=== PATIENT | female | born 1935 | race Caucasian/White ===

== ENCOUNTER 2017-11-05 00:58 | Emergency (ER) | payer MEDICARE, BC ==
[2017-11-05] MEDS ORDERED: Metoprolol Succinate 50 MG Tab.ER PO ONE (02:04)
--- NOTE | 2017-11-05 02:07 | EDM.PDOC ---
ED HPI GENERAL MEDICAL PROBLEM - General Chief Complaint: Cardiovascular Problem Stated Complaint: A-FIB Time Seen by Provider: 11/05/17 01:56 Source of Information: Reports: Patient History Limitations: Reports: No Limitations - History of Present Illness INITIAL COMMENTS - FREE TEXT/NARRATIVE: Brought by her Chief complaint Palpitations History of present illness 82-year-old female who has been having increased palpitations over the last month. In particular tonight was keeping her awake. It happens very frequently. She feels that she may have contact with atrial fibrillation No shortness of breath no chest pain Her blood pressure monitored home a heart rate was 100. - Related Data Allergies Allergy/AdvReac Type Severity Reaction Status Date / Time clindamycin Allergy Cannot Verified 10/04/16 07:13 Remember Iodinated Contrast- Oral and Allergy Cannot Verified 10/04/16 07:13 IV Dye Remember [Iodinated Contrast Media - IV Dye] prednisone Allergy Cannot Verified 10/04/16 07:13 Remember Home Meds: Home Meds Metoprolol Succinate 100 mg PO BID 02/12/15 [History] Aspirin 81 mg PO DAILY 06/04/16 [History] Tretinoin [Retin-A 0.025% Cream] 1 applic TOP BEDTIME 06/11/16 [History] Ezetimibe [Zetia] 5 mg PO DAILY 06/12/16 [History] Cholecalciferol (Vitamin D3) [Vitamin D3] 2,000 unit PO DAILY 10/03/16 [History] Cyanocobalamin (Vitamin B-12) [Vitamin B-12] 1,000 mcg SL DAILY 10/03/16 [ History] Pravastatin [Pravachol] 5 mg PO DAILY 10/03/16 [History] Lisinopril [Lisinopril] 10 mg PO DAILY 10/04/16 [History] Past Medical History HEENT History: Reports: Impaired Vision Cardiovascular History: Reports: High Cholesterol, Hypertension Gastrointestinal History: Reports: GERD Genitourinary History: Reports: Other (See Below) Other Genitourinary History: kidney removed granulo disease [employer] History: Reports: Musculoskeletal History: Reports: Fracture Neurological History: Reports: Migraines Psychiatric History: Reports: Anxiety Endocrine/Metabolic History: Reports: Other (See Below) Other Endocrine/Metabolic History: thyroid nodule Hematologic History: Reports: Anemia - Infectious Disease History Infectious Disease History: Reports: Chicken Pox, Measles, Mumps, Rheumatic Fever - Past Surgical History HEENT Surgical History: Reports: Other (See Below) Cardiovascular Surgical History: Reports: Other (See Below) GI Surgical History: Reports: Colonoscopy, EGD Female Surgical History: Reports: Breast Biopsy, Hysterectomy Neurological Surgical History: Reports: None Musculoskeletal Surgical History: Reports: Ganglion Cyst, Other (See Below) Social & Family History - Tobacco Use Smoking Status *Q: Never Smoker Second Hand Smoke Exposure: No - Caffeine Use Caffeine Use: Reports: Coffee - Alcohol Use Days Per Week of Alcohol Use: 7 Number of Drinks Per Day: 1 Total Drinks Per Week: 7 - Recreational Drug Use Recreational Drug Use: No ED ROS GENERAL - Review of Systems Review Of Systems: ROS reveals no pertinent complaints other than HPI. Cardiovascular: Reports: Palpitations. Denies: Chest Pain, Lightheadedness, Syncope ED EXAM, GENERAL - Physical Exam Exam: See Below Exam Limited By: No Limitations General Appearance: Alert, Anxious, Mild Distress, Other (Mild elevation blood pressure otherwise vital signs normal, heart rhythm normal with occasional extra beats) Eye Exam: Bilateral Eye: Normal Inspection Neck: Normal Inspection, Supple, Non-Tender Respiratory/Chest: No Respiratory Distress, No Accessory Muscle Use Cardiovascular: Normal Peripheral Pulses, Extra Beats Neurological: Alert, Oriented, No Motor/Sensory Deficits Psychiatric: Anxious Skin Exam: Warm, Dry, Intact, Normal Color Course - Vital Signs Last Recorded V/S: Last Vital Signs Temp 35.9 C 11/05/17 01:41 Pulse 70 11/05/17 02:10 Resp 13 11/05/17 02:09 BP 147/70 H 11/05/17 02:10 Pulse Ox 97 11/05/17 02:09 - Orders/Labs/Meds Meds: Medications Discontinued Medications Generic Name Dose Route Start Last Admin Trade Name Freq PRN Reason Stop Dose Admin Metoprolol Succinate 50 mg 11/05/17 02:04 11/05/17 02:10 Toprol Xl PO 11/05/17 02:05 50 mg ONETIME ONE Administration - Re-Assessments/Exams Free Text/Narrative Re-Assessment/Exam: 11/05/17 02:05 82-year-old female with history of atrial fibrillationpresents with palpitations. On the monitor she is having frequent PACs. Underlying sinus rhythm rate 72. Metoprolol 50 mg by mouth given because the palpitations are interfering with her ability to sleep This has been occurring in the last month, So follow-up with her physician is recommended to discuss further treatment of the frequent PACs, possible Holter monitor. Departure - Departure Time of Disposition: 02:10 Disposition: Home, Self-Care 01 Condition: Good Clinical Impression: Premature atrial contractions Instructions: Premature Atrial Contraction Referrals: Gurmeet Fernandez Sr, MD [Primary Care Provider] - Forms: ED Department Discharge Additional Instructions: Please make an appointment to discuss treatment of the premature atrial contractions. These are normal but early beats.
[2017-11-05 02:10] VITALS: BP 147/70
== END 2017-11-05 02:19 | disposition home or self-care (01) ==
LOC: JP.ED 00:58
DX: I49.1 Atrial premature depolarization (principal); I10 Essential (primary) hypertension; E78.00 Pure hypercholesterolemia, unspecified; K21.9 Gastro-esophageal reflux disease without esophagitis; Z79.82 Long term (current) use of aspirin; Z79.899 Other long term (current) drug therapy; Z88.1 Allergy status to other antibiotic agents; Z88.8 Allergy status to other drugs, medicaments and biological substances; Z91.041 Radiographic dye allergy status
CPT/HCPCS: 99285; A9270; 99284

== ENCOUNTER 2018-01-16 16:58 | Emergency (ER) | payer MEDICARE, BC ==
[2018-01-16 17:58] VITALS: BP 121/51
--- NOTE | 2018-01-16 18:01 | EDM.PDOC ---
ED HPI GENERAL MEDICAL PROBLEM - General Chief Complaint: General Stated Complaint: COUGH/FEVER/CHILLS Time Seen by Provider: 01/16/18 17:50 Source of Information: Reports: Patient, Family History Limitations: Reports: No Limitations - History of Present Illness INITIAL COMMENTS - FREE TEXT/NARRATIVE: Amaya presents today with complaints of sore throat, fever, ear pain, chills, nausea, cough and muscle aches for 5 days. She denies difficulty or SOB, chest pain, palpitations or change in bowel/bladder habits. She has not tried OTC medication to help her symptoms. - Related Data Allergies Allergy/AdvReac Type Severity Reaction Status Date / Time clindamycin Allergy Cannot Verified 01/16/18 17:25 Remember Iodinated Contrast- Oral and Allergy Cannot Verified 01/16/18 17:25 IV Dye Remember [Iodinated Contrast Media - IV Dye] prednisone Allergy Cannot Verified 01/16/18 17:25 Remember Home Meds: Home Meds Metoprolol Succinate 100 mg PO BID 02/12/15 [History] Tretinoin [Retin-A 0.025% Cream] 1 applic TOP BEDTIME 06/11/16 [History] Ezetimibe [Zetia] 5 mg PO DAILY 06/12/16 [History] Cholecalciferol (Vitamin D3) [Vitamin D3] 2,000 unit PO DAILY 10/03/16 [History] Pravastatin [Pravachol] 5 mg PO DAILY 10/03/16 [History] Apixaban [Eliquis] 01/16/18 [History] Flecainide [Tambocor] 01/16/18 [History] Ofloxacin [Ofloxacin] 01/16/18 [History] prednisoLONE Acetate [Pred Forte 1% Ophth Susp] 01/16/18 [History] Past Medical History HEENT History: Reports: Impaired Vision Cardiovascular History: Reports: High Cholesterol, Hypertension Gastrointestinal History: Reports: GERD Genitourinary History: Reports: Other (See Below) Other Genitourinary History: kidney removed granulo disease [employer] History: Reports: Musculoskeletal History: Reports: Fracture Neurological History: Reports: Migraines Psychiatric History: Reports: Anxiety Endocrine/Metabolic History: Reports: Other (See Below) Other Endocrine/Metabolic History: thyroid nodule Hematologic History: Reports: Anemia - Infectious Disease History Infectious Disease History: Reports: Chicken Pox, Measles, Mumps, Rheumatic Fever - Past Surgical History HEENT Surgical History: Reports: Other (See Below) Cardiovascular Surgical History: Reports: Other (See Below) GI Surgical History: Reports: Colonoscopy, EGD Female Surgical History: Reports: Breast Biopsy, Hysterectomy Neurological Surgical History: Reports: None Musculoskeletal Surgical History: Reports: Ganglion Cyst, Other (See Below) Social & Family History - Tobacco Use Smoking Status *Q: Never Smoker Second Hand Smoke Exposure: No - Caffeine Use Caffeine Use: Reports: Coffee - Alcohol Use Days Per Week of Alcohol Use: 7 Number of Drinks Per Day: 1 Total Drinks Per Week: 7 - Recreational Drug Use Recreational Drug Use: No ED ROS GENERAL - Review of Systems Review Of Systems: See Below Constitutional: Reports: Fever, Chills. Denies: Malaise, Weakness HEENT: Reports: Ear Pain. Denies: Ear Discharge, Throat Pain Respiratory: Reports: Cough. Denies: Shortness of Breath, Wheezing, Sputum, Hemoptysis Cardiovascular: Denies: Chest Pain, Blood Pressure Problem, Dyspnea on Exertion , Edema, Lightheadedness, Palpitations, PND, Syncope Endocrine: Reports: No Symptoms GI/Abdominal: Reports: Nausea. Denies: Abdominal Pain, Black Stool, Bloody Stool, Constipation, Diarrhea, Difficulty Swallowing, Hematemesis, Vomiting : Reports: No Symptoms Musculoskeletal: Reports: Other (generalized muscle aches) Skin: Denies: Pallor, Dryness, Bruising, Rash, Erythema, Wound Neurological: Denies: Confusion, Dizziness, Headache, Numbness, Tingling, Trouble Speaking, Weakness, Gait Disturbance Psychiatric: Reports: No Symptoms Hematologic/Lymphatic: Reports: No Symptoms Immunologic: Reports: No Symptoms ED EXAM, GENERAL - Physical Exam Exam: See Below Free Text/Narrative:: Amaya is an alert and oriented female presenting with complaints of flu-like symptoms for 5 days. General Appearance: Alert, WD/WN, Moderate Distress Eye Exam: Bilateral Eye: EOMI, Normal Inspection, PERRL Ears: Normal External Exam, Normal Canal, Hearing Grossly Normal, Normal TMs Ear Exam: Bilateral Ear: Auricle Normal, Canal Normal, TM normal Nose: Normal Inspection, Normal Mucosa, No Blood Throat/Mouth: Normal Inspection, Normal Lips, Normal Gums, Normal Voice, No Airway Compromise Head: Atraumatic, Normocephalic Neck: Normal Inspection, Supple, Non-Tender, Full Range of Motion. No: Lymphadenopathy (R), Lymphadenopathy (L) Respiratory/Chest: No Respiratory Distress, Lungs Clear, Normal Breath Sounds, No Accessory Muscle Use, Chest Non-Tender Cardiovascular: Normal Peripheral Pulses, Regular Rate, Rhythm, No Edema, No Gallop, No Murmur Peripheral Pulses: 2+: Radial (L), Radial (R), Dorsalis Pedis (L), Dorsalis Pedis (R) GI/Abdominal: Normal Bowel Sounds, Soft, Non-Tender, No Organomegaly, No Distention, No Mass. No: Guarding, Rigid, Rebound, Tender Back Exam: Normal Inspection, Full Range of Motion. No: CVA Tenderness (R), CVA Tenderness (L) Extremities: Normal Inspection, Normal Range of Motion, Non-Tender, No Pedal Edema, Normal Capillary Refill Neurological: Alert, Oriented, CN II-XII Intact, Normal Cognition, Normal Gait, No Motor/Sensory Deficits Psychiatric: Normal Affect, Normal Mood Skin Exam: Warm, Dry, Intact, Normal Color, No Rash Lymphatic: No Adenopathy Course - Vital Signs Last Recorded V/S: Last Vital Signs Temp 37.7 C 01/16/18 17:33 Pulse 74 01/16/18 17:57 Resp 18 01/16/18 17:33 BP 121/51 L 01/16/18 17:57 Pulse Ox 94 L 01/16/18 17:33 - Orders/Labs/Meds Orders: Active Orders 24 hr Category Date Time Status CULTURE STREP A CONFIRMATION [] Stat Lab 01/16/18 18:22 Results STREP SCRN A RAPID W CULT CONF [] Stat Lab 01/16/18 18:22 Results Labs: Laboratory Tests 01/16/18 01/16/18 01/16/18 Range/Units 18:12 18:12 18:22 WBC 6.3 (4.5-11.0) K/uL RBC 4.06 (3.30-5.50) M/uL Hgb 13.8 (12.0-15.0) g/dL Hct 40.5 (36.0-48.0) % MCV 100 H (80-98) fL MCH 34 H (27-31) pg MCHC 34 (32-36) % Plt Count 174 (150-400) K/uL Neut % (Auto) 75 H (36-66) % Lymph % (Auto) 15 L (24-44) % [place] % (Auto) 10 H (2-6) % Eos % (Auto) 0 L (2-4) % Baso % (Auto) 0 (0-1) % Sodium 138 L (140-148) mmol/L Potassium 3.8 (3.6-5.2) mmol/L Chloride 101 (100-108) mmol/L Carbon Dioxide 26 (21-32) mmol/L Anion Gap 14.8 H (5.0-14.0) mmol/L BUN 11 (7-18) mg/dL Creatinine 1.2 H (0.6-1.0) mg/dL Est Cr Clr Drug Dosing 29.57 mL/min Estimated GFR (MDRD) 43 L (>60) Glucose 121 H (74-106) mg/dL Calcium 8.6 (8.5-10.1) mg/dL Total Bilirubin 0.5 (0.2-1.0) mg/dL AST 21 (15-37) U/L ALT 22 (12-78) U/L Alkaline Phosphatase 45 L (46-116) U/L Total Protein 5.9 L (6.4-8.2) g/dL Albumin 3.3 L (3.4-5.0) g/dL Globulin 2.6 (2.3-3.5) g/dL Albumin/Globulin Ratio 1.3 (1.2-2.2) Urine Color Yellow Urine Appearance Slightly cloudy Urine pH 5.0 (4.5-8.0) Ur Specific [place] 1.020 (1.008-1.030) Urine Protein Negative (NEGATIVE) mg/dL Urine Glucose (UA) Normal (NEGATIVE) mg/dL Urine Ketones 15 H (NEGATIVE) mg/dL Urine Occult Blood Moderate (NEGATIVE) Urine Nitrite Negative (NEGATIVE) Urine Bilirubin Small (NEGATIVE) Urine Urobilinogen 1 (NORMAL) mg/dL Ur Leukocyte Esterase Large (NEGATIVE) Urine RBC 0-5 (0-5) Urine WBC 10-20 H (0-5) Ur Epithelial Cells Moderate Urine Bacteria Moderate Urine Mucus Many Patient lab work reviewed. - Re-Assessments/Exams Free Text/Narrative Re-Assessment/Exam: Case discussed with Dr. Officer. Patient onset of symptoms 5 days ago, no significant change in vital signs, no respiratory distress. Tamiflu would not benefit Amaya at this time. We will treat her symptoms, encourage fluid intake to prevent dehydration and have her follow up with her provider. Departure - Departure Time of Disposition: 19:07 Disposition: Home, Self-Care 01 Condition: Fair Clinical Impression: Influenza A - Discharge Information Instructions: Influenza, Adult, [id number] Referrals: Gurmeet Fernandez Sr, MD [Primary Care Provider] - Forms: ED Department Discharge Additional Instructions: You have been evaluated in the emergency room. You are suffering from influenza A. It is best to treat your symptoms. Take acetaminophen 650mg to 1000mg three to four times a day for pain/fever. You may take ondansetron 4mg by mouth three times a day for nausea. Drink plenty of fluids, water, gatorade. Rest. Follow up with your provider in 7 to 10 days for a recheck. Return to the emergency room for worsening, issues or concerns. - My Orders Last 24 Hours: My Active Orders 01/16/18 18:22 CULTURE STREP A CONFIRMATION [RM] Stat STREP SCRN A RAPID W CULT CONF [RM] Stat - Assessment/Plan Last 24 Hours: My Active Orders 01/16/18 18:22 CULTURE STREP A CONFIRMATION [RM] Stat STREP SCRN A RAPID W CULT CONF [RM] Stat Assessment:: Influenza A Plan: Patient suffering from influenza A with onset of symptoms 5 days ago. It is best to use symptomatic treatments. Take acetaminophen 650mg to 1000mg three to four times a day for pain/fever. She may take ondansetron 4mg by mouth three times a day for nausea. Drink plenty of fluids, water, gatorade. Rest. Follow up with your provider in 7 to 10 days for a recheck. Return to the emergency room for worsening, issues or concerns.
== END 2018-01-16 19:28 | disposition home or self-care (01) ==
LOC: JP.ED 16:58
DX: J10.1 Influenza due to other identified influenza virus with other respiratory manifestations (principal); E78.00 Pure hypercholesterolemia, unspecified; I10 Essential (primary) hypertension; Z88.1 Allergy status to other antibiotic agents; Z91.041 Radiographic dye allergy status; Z88.8 Allergy status to other drugs, medicaments and biological substances; Z79.899 Other long term (current) drug therapy
CPT/HCPCS: 36415; 80053; 81001; 85025; 87081; 87430; 87804; 99284

== ENCOUNTER 2022-08-05 05:20 | Day surgery (SDC) | payer MEDICARE ==
[2022-08-05] MEDS ORDERED: Dextrose 5%-Lactated Ringers 1,000 ML IV SCH (06:00)
[2022-08-05] MEDS ORDERED: Propofol 200 MG/20 ML SDV ONE (07:09)
[2022-08-05 09:30] VITALS: BP 134/56; PULSE 56
== END 2022-08-05 09:35 | disposition home or self-care (01) ==
LOC: JP.SDS 05:20
PROVIDERS: ATTEND Surgery
DX: K31.7 Polyp of stomach and duodenum (principal); K29.60 Other gastritis without bleeding; K44.9 Diaphragmatic hernia without obstruction or gangrene; I25.2 Old myocardial infarction; I12.9 Hypertensive chronic kidney disease with stage 1 through stage 4 chronic kidney disease, or unspecified chronic kidney disease; N18.9 Chronic kidney disease, unspecified; I48.91 Unspecified atrial fibrillation
CPT/HCPCS: 43239; 43251; 87081; 88305; J2704; J7121

== ENCOUNTER 2023-07-24 07:09 | Day surgery (SDC) | payer MEDICARE ==
[~2023-07-24 07:09] MED LIST: Bupivacaine 0.5% 50 ML MDV ONE; Lidocaine 1% with EPINEPHrine 1:100,000 50 ML MDV ONE
[2023-07-24] MEDS ORDERED: fentaNYL 100 MCG/2 ML SDV ONE (07:36)
[2023-07-24] MEDS ORDERED: Propofol 200 MG/20 ML SDV ONE (07:36)
[2023-07-24] MEDS ORDERED: Dextrose 5%-Lactated Ringers 1,000 ML IV SCH (08:00)
[2023-07-24] MEDS ORDERED: ceFAZolin 2 GM in Premix Bag 1 BAG IV ONE (08:45)
[2023-07-24 11:34] VITALS: BP 132/61; PULSE 51
== END 2023-07-24 11:59 | disposition home or self-care (01) ==
LOC: JP.SDS 07:09
PROVIDERS: ATTEND Surgery
DX: K13.0 Diseases of lips (principal); E78.5 Hyperlipidemia, unspecified; I48.91 Unspecified atrial fibrillation; I12.9 Hypertensive chronic kidney disease with stage 1 through stage 4 chronic kidney disease, or unspecified chronic kidney disease; N18.30 Chronic kidney disease, stage 3 unspecified; R73.03 Prediabetes; Z90.5 Acquired absence of kidney; Z88.1 Allergy status to other antibiotic agents; Z91.041 Radiographic dye allergy status; Z88.8 Allergy status to other drugs, medicaments and biological substances
CPT/HCPCS: 11440; 12051; 88305; J0690; J2704; J3010; J3490; J7121